=== PATIENT | male | born 1990 | race Caucasian/White ===

== ENCOUNTER 2016-11-21 10:35 | Emergency (ER) | payer BC ==
[~2016-11-21] VITALS: Ht 177.8 cm; Wt 98.3 kg
[2016-11-21 13:27] LABS: INFLUENZA A VIRAL ANTIGEN POSITIVE; INFLUENZA B VIRAL ANTIGEN NEGATIVE
[2016-11-21] MEDS ORDERED: MOTRIN600 MG PO (13:43)
[2016-11-21 14:00] VITALS: BP 135/99
== END 2016-11-21 14:01 | disposition home or self-care (01) ==
LOC: EME 10:35
PROVIDERS: Physician Assistant
DX: J10.1 Influenza due to other identified influenza virus with other respiratory manifestations (principal)
CPT/HCPCS: 71020; 87502; 87651 90; 99281; 99284

== ENCOUNTER 2017-03-08 21:39 | Emergency (ER) | payer OTHER, BC ==
[~2017-03-08] VITALS: Ht 180.3 cm; Wt 70.4 kg
[~2017-03-08 21:39] MED LIST: MOTRIN600 MG PO
[2017-03-09] MEDS ORDERED: NORCO 7.5/321 TABLET PO (01:22)
[2017-03-09] MEDS ORDERED: MOTRIN800 MG PO (01:22)
[2017-03-09 02:39] VITALS: BP 140/86
== END 2017-03-09 02:40 | disposition home or self-care (01) ==
LOC: EME 21:39
PROC: 2W39X1Z Immobilization of Left Upper Extremity using Splint (ICD-10-PCS; principal; 2017-03-09)
DX: S52.125A Nondisplaced fracture of head of left radius, initial encounter for closed fracture (principal); X58.XXXA Exposure to other specified factors, initial encounter; Y99.0 Civilian activity done for income or pay
CPT/HCPCS: 73080; 99281; 99284